=== PATIENT | female | born 1950 ===

== ENCOUNTER 2023-06-18 14:50 | Outpatient (CLI) | payer SELFPAY ==
[~2023-06-18] VITALS: Ht 147 cm; Wt 53.9 kg
[2023-06-18 16:01] LABS: CLARITY,URINE CLEAR; COLOR,URINE YELLOW; PH,URINE >=9.0 (5-9)
[2023-06-18 16:02] LABS: BACTERIA,URINE NEGATIVE /HPF; BILIRUBIN,URINE NEGATIVE (NEGATIVE); GLUCOSE, URINE (UA) NEGATIVE (NEGATIVE); KETONES,URINE NEGATIVE (NEGATIVE); LEUKOCYTE ESTERASE ,URINE 1+ (NEGATIVE); NITRITE,URINE NEGATIVE (NEGATIVE); PROTEIN,URINE NEGATIVE (NEGATIVE); WBC,URINE 0-2 /HPF
[2023-06-18 16:05] LABS: BASOPHILS % (AUTO) 0 % (0-10); EOSINOPHILS % (AUTO) 0 % (0-10); HEMATOCRIT 39 % (35-52); HEMOGLOBIN 12.3 g/dL (11.5-16.0); LYMPHOCYTES # (AUTO) 1.5 10^3/uL (1.0-4.0); LYMPHOCYTES % (AUTO) 13 % (12-44); MEAN CORPUSCULAR HEMOGLOBIN 28 pg (25-34); MEAN CORPUSCULAR HGB CONC 32 g/dL (32-36); MEAN CORPUSCULAR VOLUME 88 fL (80-99); MONOCYTES # (AUTO) 0.5 10^3/uL (0.0-1.0); MONOCYTES % (AUTO) 4 % (0-12); NEUTROPHILS # (AUTO) 9.7 10^3/uL (1.8-7.8); NEUTROPHILS % (AUTO) 82 % (42-75); PLATELET COUNT 405 10^3/uL (130-400); WHITE BLOOD COUNT 11.8 10^3/uL (4.3-11.0)
[2023-06-18 16:23] LABS: CALCIUM 8.8 MG/DL (8.5-10.1)
[2023-06-18 16:28] LABS: CREATININE SERUM 0.71 MG/DL (0.60-1.30)
== END 2023-06-18 18:03 ==
LOC: PREOP 14:50
PROVIDERS: ATTEND Orthopaedic Surgery
DX: Z01.818 Encounter for other preprocedural examination (principal); M17.12 Unilateral primary osteoarthritis, left knee
CPT/HCPCS: 36415; 80048; 81000; 85025; 87081; 93005

== ENCOUNTER → 2023-06-18 | Outpatient (CLI) | payer SELFPAY ==
[~2023-06-18] MED LIST: ASPI-1238 PO; OXC5T PO
--- NOTE | 2023-06-18 14:37 | Diagnostic Imaging Report ---
EXAMINATION: Chest 2 view HISTORY: PRE-SURGERY TESTING COMPARISON: None available. FINDINGS: There is bibasilar atelectasis. No edema or pneumonia. No pleural effusion or pneumothorax. Heart size is normal. IMPRESSION: 1. Bibasilar atelectasis. Dictated by: Dictated on workstation # [id number]
--- NOTE | 2023-06-18 16:58 | Diagnostic Imaging Report ---
KNEE, BILATERAL, W/SUNRISE 4V. INDICATION: Bilateral knee pain COMPARISON: None available. TECHNIQUE: 4 views of each knee for total of 8 views FINDINGS: Severe osteoarthritis of bilateral knees with complete joint space in the medial compartment on each side. No trochlear dysplasia or patellar subluxation. No fracture or worrisome focal osseous lesions. Small knee joint effusion on both sides. IMPRESSION: Severe osteoarthritis of both knees. Dictated by: Dictated on workstation # [id number]
== END ==
LOC: ORTHO 13:01
PROVIDERS: ATTEND Orthopaedic Surgery
DX: M17.0 Bilateral primary osteoarthritis of knee (principal)
CPT/HCPCS: 71046; 73564; G0463; 99203

== ENCOUNTER 2023-07-01 07:23 | Day surgery (SDC) | payer SELFPAY ==
[2023-07-01] VITALS (11 sets, daily range): BP systolic 111–181; BP diastolic 63–95
[~2023-07-01] VITALS: Ht 147 cm; Wt 53.9 kg
[2023-07-01] MEDS ORDERED: ceFAZolin INJECTION 2,000 MG in NS (IVPB) 50 ML 50 ML IV ONE (07:30)
[2023-07-01] MEDS: LACTATED RINGERS 1,000 ML 1,000 ML IV PRN ×2 (08:17→11:46)
[2023-07-01] MEDS ORDERED: ONDANSETRON INJECTION 4 MG/2 ML (SDV) IVP PRN (08:30)
[2023-07-01] MEDS ORDERED: BUPIVACAINE 0.5% 30 ML VIAL ONE (10:06)
--- NOTE | 2023-07-01 11:05 | Progress Note-Pre Operative ---
Pre-Operative Progress Note Date of Available H&P: Jun 18, 2023 Date H&P Reviewed: Jul 01, 2023 Time H&P Reviewed: 10:45 History & Physical: H&P Reviewed, Patient Examed, No changes noted Pre-Operative Diagnosis: Left Knee Primary Osteoarthritis LORETTA AQUINO MD Jul 01, 2023 11:05
[2023-07-01] MEDS ORDERED: TRANEXAMIC ACID 100 MG/ML 10 ML INJECTION ONE (11:30)
[2023-07-01] MEDS ORDERED: PHENYLEPHRINE 100 MCG/ML 10 ML (ANESTHESIA) SYR ONE (11:32)
[2023-07-01] MEDS ORDERED: proPOfol INJECTION 200 MG/20 ML VIAL IV ONE (12:53)
--- NOTE | 2023-07-01 13:34 | Operative Report - Ortho ---
Operative Report Surgeon (s)/Service Electrician (s) Surgeon LORETTA AQUINO MD Service Electrician n/a Pre-Operative Diagnosis Left Knee Primary Osteoarthritis Post-Operative Diagnosis same Operative Report Date of Procedure: Jul 01, 2023 Name of Procedure Performed: Left Total Knee Arthroplasty Description & Findings After obtaining informed consent and marking the patient in the preoperative holding area, the patient did receive IV antibiotics. Patient was taken to the operating room and anesthesia was induced. Surgical timeout was taken. The left lower extremity was prepped and draped in the usual sterile fashion. Incision was made and carried down to fascia. Arthrotomy was performed on the medial side of the patella. Patella was retracted laterally and knee was flexed. Found to have circumferential osteophtye around the distal femur as well as exposed bone in the medial compartment. Hole was made in the distal femur for the intramedullary distal femoral cutting guide. Resection was made then the femur was sized as a 3. 4-in-1 block for a size [address]. Anterior cut was made and there was no notch. Posterior cut was made followed by the chamfers. Box cut was performed. Lug holes were drilled. Attention was turned to the tibial side, extramedullary tibial guide was put into place and aligned with the tibial crest. It was set to take 2 mm off of the affected medial side. Drop anna was used to confirm alignment. Resection was made and was parallel to the joint line. Tibial bone block was removed. Lamina wool presser was put into place and the menisci and posterior osteophytes were removed. The knee was trialed with a size 3 femur and a size 2 tibia with an 11 mm poly trial. It was found to come out to full extension and flexed beyond 120 degrees. It was stable to varus and valgus stress throughout its range of motion. This was accepted. Knee was brought out into extension and the patella was measured at less than 20 mm of thickness; osteophytes were removed from the perimeter of the patella. Tibial tray was pinned and punched. The cut bone surfaces were lavaged with pulsatile normal saline. Cement was mixed. Implants were opened and assembled on the back table. Cement was applied to the cut bone surfaces as well as the implant surfaces. A size 2 tibial component was impacted into place and excess cement was removed using a freer. A size 3 femoral component was impacted into place and excess cement was removed using a freer. Tibial tray was lavaged with saline. An 11 mm thick polyethylene component was locked into placed and the locking mechanism was checked. Knee was brought into extension. The cement was allowed to set. Irrisept soak was performed. The knee was once again trialed; found to come to full extension, flexed beyond 120 degrees, and was stable to varus and valgus stress. Patella did have some issues with tracking; a lateral release and some suture reefing was performed and the patella tracking improved. Tourniquet was dropped and electrocautery was used for hemostasis. Fascial layer was closed with #2 Stratafix. The subcutaneous layer was closed with 2-0 and 3-0 Vicryl. The skin was closed with adi. Wound was dressed with steri-strips, xeroform, 4x4s, ABD, webril, and STEVE wrap. Patient tolerated the procedure well and was stable to the recovery room. Anesthesia Type Spinal Estimated Blood Loss 100 mL Specimen(s) collected/removed None LROETTA AQUINO MD Jul 01, 2023 13:34
[2023-07-01] MEDS ORDERED: BISACODYL 5 MG TABLET PO PRN (13:45)
[2023-07-01] MEDS ORDERED: MILK OF MAGNESIA 400 MG/5 ML 30 ML UDC PO PRN (13:45)
[2023-07-01] MEDS ORDERED: NS IV 1000 ML 1,000 ML IV SCH (13:45)
[2023-07-01] MEDS ORDERED: ACETAMINOPHEN 500 MG TABLET PO PRN (13:45)
--- NOTE | 2023-07-01 14:28 | Diagnostic Imaging Report ---
CLINICAL HISTORY: Postop left knee arthroplasty. COMPARISON: 06/18/2023. TECHNIQUE: 2 views of the left knee. FINDINGS: Postsurgical changes of left total knee arthroplasty are visualized. The femoral and tibial components are well-seated. No periprosthetic fracture. Alignment is anatomic. Skin adi are seen overlying the left knee. IMPRESSION: 1. Expected post surgical changes of left total knee arthroplasty. Dictated by: Dictated on workstation # [id number]
[2023-07-01] MEDS ORDERED: FLU HIGH DOSE (65+ YOA) 240 MCG/0.7 ML 2023-24 (FLUZONE) IM ONE (15:00)
--- NOTE | 2023-07-01 15:37 | Consultation ---
RADHA PINA 07/01/23 1537: HPI History of Present Illness: HPI/Chief Complaint Left total knee replacement was performed this morning by Dr. Whipple. An electronic machinist tool and die was used. Pt has no current knee pain. She has no problems with the incisions. Pt complains of stomach pain that was present before the surgery and is bothering her right now. She describes the pain as a constant dull in the "pit" of her stomach. She has a history of an ulcer. She uses Advil at home. Pt also complains of feeling nauseous and the feeling she could vomit that occurred after the surgery. She denies any KING, CP, or SOB. Her last BM was before the surgery. Source: machinist tool and die (electronic) Exam Limitations: language barrier (thai speaking) Date Seen 07/01/23 at 1515H. Attending Physician PCP Admitting Physician: Ronald Whipple MD Attending Physician: Ronald Whipple MD Referring Physician Date of Admission Home Medications & Allergies Home Medications Reviewed patient Home Medication Reconciliation performed by pharmacy medication reconciliations conveyor technician and/or nursing. Patients Allergies have been reviewed. Allergies Allergies Coded Allergies No Known Drug Allergies (Czcxhaljmb97/14/23) Past Shebogq-Bgrtwz-Ztkudk Hx Patient Social History Tobacco Use?: No Use of E-Cig and/or Vaping dev: No Substance use?: No Alcohol Use?: No Immunizations Up To Date Tetanus Booster (TDap): Unknown Hepatitis A: No Hepatitis B: No Seasonal Allergies Seasonal Allergies: No Current Status Advance Directives: No Communicates: Verbally Primary Language: [place] Preferred Spoken Language: [place] Is interpretation needed?: Yes Sensory deficits: Other Past Medical History Surgeries: Section, Gallbladder ("cysts removed". GB is still in tact.) Currently Using CPAP: No Currently Using BIPAP: No High Cholesterol Gall Bladder Disease Arthritis Loss of Vision: Denies Hearing Impairment: Denies Recent Skin Changes Blood Disorders: No Family Medical History Patient reports no known family medical history. No Pertinent Family Hx (pt was asked directly about her mother and father. She verbalized them not having any chronic conditions.) Review of Systems Constitutional: No dizziness, No fever, No malaise, No weakness EENTM: No hearing loss, No ear pain, No eye pain Respiratory: No cough, No short of breath Cardiovascular: No chest pain, No palpitations Gastrointestinal: abdominal pain, nausea Physical Exam Physical Exam Vital Signs Vital Signs - First Documented 07/01/23 07:35 Temp 36.5 Pulse 84 Resp 18 B/P (MAP) 181/93 (122) Pulse Ox 98 O2 Delivery Room Air Capillary Refill : Less Than 3 Seconds Height, Weight, BMI Height: '" Weight: lbs. oz. 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 Assessment/Plan Assessment and Plan Assess & Plan/Chief Complaint Assessmnet: Left Total Knee Plan: Left Total Knee -monitor pt's status and pain UYEN HERNANDEZ DO 07/02/23 0456: HPI History of Present Illness: HPI/Chief Complaint Chief complaint: Left total knee replacement HPI: This is a 72-year-old female who presents following left knee replacement uncomplicated by Dr. Whipple. I am able to communicate and medical [place]ander. Patient currently having a lot of pain but no nausea. Source: patient, RN/MD, old records Exam Limitations: no limitations Past Vejcgzo-Wguotu-Rqnsis Hx Patient Social History Marrital Status: Employed/Student: retired Tobacco Use?: No Smoking Status: Never a Smoker Past Medical History Surgeries: Orthopedic Family Medical History Patient reports no known family medical history. Review of Systems Constitutional: see HPI Musculoskeletal: joint pain Physical Exam Physical Exam General Appearance: Anxious, Mild Distress Respiratory: Lungs Clear, Normal Breath Sounds Cardiovascular: Regular Rate, Rhythm Neurologic/Psychiatric: Alert, Oriented x3 Assessment/Plan Assessment and Plan Assess & Plan/Chief Complaint Assessment: Left total knee replacement Elevated blood pressure without diagnosis of hypertension Plan: Check labs in a.m. Pain control Monitor closely Supervisory-Addendum Brief Verification & Attestation Participated in pt care: history, MDM, physical Personally performed: exam, history, MDM, supervision of care Care discussed with: Medical Student Procedures: n/a Results interpretation: Verified all documentation Verification and Attestation of Medical Student E/M Service A medical student performed and documented this service in my presence. I reviewed and verified all information documented by the medical student and made modifications to such information, when appropriate. I personally performed the physical exam and medical decision making. Uyen Hernandez, Jul 02, 2023,04:54 RADHA PINA Jul 01, 2023 15:37 UYEN HERNANDEZ DO Jul 02, 2023 04:56
[2023-07-01] MEDS: morphine INJ 4 MG/ML 1 ML (VIAL/SYRINGE) IVP PRN ×3 (15:48→20:25)
[2023-07-01] MEDS: oxyCODONE IMMEDIATE RELEASE 5 MG TABLET PO PRN (16:59)
[2023-07-01] MEDS: ASPIRIN enteric coated 81MG TABLET PO SCH (16:59)
[2023-07-01] MEDS: ONDANSETRON INJECTION 4 MG/2 ML (SDV) IV PRN (19:36)
[2023-07-01] MEDS: CELECOXIB 100 MG CAPSULE PO SCH (19:37)
[2023-07-01] MEDS: DOCUSATE SODIUM 100 MG CAPSULE PO SCH (19:38)
[2023-07-01] MEDS: ceFAZolin INJECTION 2,000 MG in NS (IVPB) 50 ML 50 ML IV SCH (20:25)
[2023-07-01] MEDS ORDERED: hydrALAZINE 25 MG TABLET PO PRN (20:30)
[2023-07-02] VITALS (7 sets, daily range): BP systolic 120–155; BP diastolic 70–83
[2023-07-02] MEDS: oxyCODONE IMMEDIATE RELEASE 5 MG TABLET PO PRN ×2 (01:56→16:48)
[2023-07-02] MEDS: ONDANSETRON INJECTION 4 MG/2 ML (SDV) IV PRN ×2 (01:56→13:33)
[2023-07-02] MEDS: ceFAZolin INJECTION 2,000 MG in NS (IVPB) 50 ML 50 ML IV SCH (05:39)
[2023-07-02] MEDS: THERAPEUTIC MULTIVITAMIN W/MINERALS TABLET PO SCH (05:39)
[2023-07-02 05:45] LABS: BASOPHILS # (AUTO) 0.1 10^3/uL (0.0-0.1); BASOPHILS % (AUTO) 1 % (0-10); EOSINOPHILS # (AUTO) 0.2 10^3/uL (0.0-0.3); EOSINOPHILS % (AUTO) 2 % (0-10); HEMATOCRIT 35 % (35-52); HEMOGLOBIN 10.9 g/dL (11.5-16.0); LYMPHOCYTES # (AUTO) 1.6 10^3/uL (1.0-4.0); LYMPHOCYTES % (AUTO) 14 % (12-44); MEAN CORPUSCULAR HEMOGLOBIN 27 pg (25-34); MEAN CORPUSCULAR HGB CONC 31 g/dL (32-36); MEAN CORPUSCULAR VOLUME 87 fL (80-99); MEAN PLATELET VOLUME 9.2 fL (9.0-12.2); MONOCYTES # (AUTO) 1.2 10^3/uL (0.0-1.0); MONOCYTES % (AUTO) 10 % (0-12); NEUTROPHILS % (AUTO) 74 % (42-75); PLATELET COUNT 259 10^3/uL (130-400); WHITE BLOOD COUNT 12.2 10^3/uL (4.3-11.0)
[2023-07-02 06:01] LABS: ALBUMIN 3.5 GM/DL (3.2-4.5); BILIRUBIN,TOTAL 0.6 MG/DL (0.1-1.0); CALCIUM 8.5 MG/DL (8.5-10.1); CREATININE SERUM 0.72 MG/DL (0.60-1.30); TOTAL PROTEIN 5.9 GM/DL (6.4-8.2)
[2023-07-02] MEDS: ASPIRIN enteric coated 81MG TABLET PO SCH ×2 (08:08→18:44)
[2023-07-02] MEDS: CELECOXIB 100 MG CAPSULE PO SCH ×2 (08:09→21:32)
[2023-07-02] MEDS: DOCUSATE SODIUM 100 MG CAPSULE PO SCH ×2 (08:09→21:32)
[2023-07-02] MEDS: morphine INJ 4 MG/ML 1 ML (VIAL/SYRINGE) IVP PRN (08:09)
--- NOTE | 2023-07-02 08:36 | Progress Note ---
Subjective Date Seen by a Provider: Jul 02, 2023 Time Seen by a Provider: 11:30 Subjective/Events-last exam Patient doing about the same A lot of pain Some nausea Walked a little bit with therapy Review of Systems Gastrointestinal: Nausea Musculoskeletal: leg pain Objective Exam Last Set of Vital Signs Vital Signs Date Time Temp Pulse Resp B/P (MAP) Pulse Ox O2 Delivery O2 Flow Rate FiO2 07/02/23 07:35 37.8 91 16 146/83 (104) 93 Nasal Cannula 2.00 Capillary Refill : Less Than 3 Seconds I&O Intake and Output 07/01/23 23:59 Intake Total 1440 ml Output Total 1650 ml Balance -210 ml Intake Oral 340 ml IV Total 1100 ml Output Urine Total 1650 ml General: Alert, Oriented X3, Cooperative, No Acute Distress Lungs: Clear to Auscultation, Normal Air Movement Heart: Regular Rate, Normal S1, Normal S2, No Murmurs Psych/Mental Status: Mental Status NL, Mood NL Results Lab Laboratory Tests 07/02/23 05:29: White Blood Count 12.2H, Red Blood Count 3.98, Hemoglobin 10.9L, Hematocrit 35, Mean Corpuscular Volume 87, Mean Corpuscular Hemoglobin 27, Mean Corpuscular Hemoglobin Concent 31L, Red Cell Distribution Width 13.4, Platelet Count 259, Mean Platelet Volume 9.2, Immature Granulocyte % (Auto) 0, Neutrophils (%) (Auto) 74, Lymphocytes (%) (Auto) 14, Monocytes (%) (Auto) 10, Eosinophils (%) (Auto) 2, Basophils (%) (Auto) 1, Neutrophils # (Auto) 9.0H, Lymphocytes # (Auto) 1.6, Monocytes # (Auto) 1.2H, Eosinophils # (Auto) 0.2, Basophils # (Auto) 0.1, Immature Granulocyte # (Auto) 0.1, Sodium Level 139, Potassium Level 3.0L, Chloride Level 106, Carbon Dioxide Level 23, Anion Gap 10, Blood Urea Nitrogen 8, Creatinine 0.72, Estimat Glomerular Filtration Rate 88, BUN/Crea tinine Ratio 11, Glucose Level 168H, Calcium Level 8.5, Corrected Calcium 8.9, Total Bilirubin 0.6, Aspartate Amino Transf (AST/SGOT) 18, Alanine Aminotransferase (ALT/SGPT) 24, Alkaline Phosphatase 83, Total Protein 5.9L, Albumin 3.5 Assessment/Plan Assessment/Plan Assess & Plan/Chief Complaint Assessment: Left total knee replacement Elevated blood pressure without diagnosis of hypertension Hypokalemia Nausea Plan: Continue therapy Replace potassium Monitor closely CARLA HERNANDEZ DO Jul 02, 2023 08:36
[2023-07-02] MEDS ORDERED: POTASSIUM CHLORIDE 20 MEQ TABLET PO ONE (08:45)
--- NOTE | 2023-07-02 09:32 | Progress Note - Ortho ---
Progress Note Subjective Date of Exam 07/02/23 Chief Complaint POD #1 L TKA HPI/Events since last exam some difficulty with pain, difficulty with nausea Review of Systems - Allergies: Coded Allergies: No Known Drug Allergies (Unverified , 06/18/23) Home Meds No Active Prescriptions or Reported Meds Objective Exam L Knee: Dressing C/D/I, +DF of ankle, no s/s of DVT Vital Signs Vital Signs Date Time Temp Pulse Resp B/P (MAP) Pulse Ox O2 Delivery O2 Flow Rate FiO2 07/02/23 08:51 92 Room Air 07/02/23 07:35 37.8 91 16 146/83 (104) 93 Nasal Cannula 2.00 07/02/23 04:01 37.5 94 16 155/75 (101) 92 Room Air 07/01/23 23:11 37.0 83 18 150/74 (99) 92 Room Air 07/01/23 19:45 92 Room Air 07/01/23 19:08 36.9 77 16 160/75 (103) 92 Room Air 07/01/23 15:38 36.5 66 16 136/84 (101) 95 Room Air 07/01/23 14:36 36.5 65 16 162/63 (96) 93 Room Air 07/01/23 14:25 Room Air 07/01/23 14:20 36.2 20 166/95 (118) 97 Room Air 07/01/23 14:15 Room Air 07/01/23 14:10 20 162/95 (117) 98 Room Air 07/01/23 14:00 Room Air 07/01/23 14:00 20 161/81 (107) 96 Room Air 07/01/23 13:50 20 144/80 (101) 98 Room Air 07/01/23 13:45 Room Air 07/01/23 13:40 20 118/68 (85) 98 Room Air 07/01/23 13:31 Room Air 07/01/23 13:31 36.2 20 111/71 (84) 97 Room Air I & O 07/02/23 06:59 Intake Total 2840 ml Output Total 2800 ml Balance 40 ml Lab Results Laboratory Tests 07/02/23 05:29: White Blood Count 12.2H, Red Blood Count 3.98, Hemoglobin 10.9L, Hematocrit 35, Mean Corpuscular Volume 87, Mean Corpuscular Hemoglobin 27, Mean Corpuscular Hemoglobin Concent 31L, Red Cell Distribution Width 13.4, Platelet Count 259, Mean Platelet Volume 9.2, Immature Granulocyte % (Auto) 0, Neutrophils (%) (Auto) 74, Lymphocytes (%) (Auto) 14, Monocytes (%) (Auto) 10, Eosinophils (%) (Auto) 2, Basophils (%) (Auto) 1, Neutrophils # (Auto) 9.0H, Lymphocytes # (Auto) 1.6, Monocytes # (Auto) 1.2H, Eosinophils # (Auto) 0.2, Basophils # (Auto) 0.1, Immature Granulocyte # (Auto) 0.1, Sodium Level 139, Potassium Level 3.0L, Chloride Level 106, Carbon Dioxide Level 23, Anion Gap 10, Blood Urea Nitrogen 8, Creatinine 0.72, Estimat Glomerular Filtration Rate 88, BUN/Creatinine Ratio 11, Glucose Level 168H, Calcium Level 8.5, Corrected Calcium 8.9, Total Bilirubin 0.6, Aspartate Amino Transf (AST/SGOT) 18, Alanine Aminotransferase (ALT/SGPT) 24, Alkaline Phosphatase 83, Total Protein 5.9L, Albumin 3.5 Imaging 2 postop views of the left knee dated 07/02/23 were reviewed from PACS and demonstrated total knee arthroplasty with components in good position, no complicating features Assessment and Plan Assessment Left Knee OA s/p TKA Problem List Left Knee OA s/p TKA Plan PT/OT DVT Prophylaxis Plan for home with home health versus outpatient therapy tomorrow Final Diagonsis Left Knee OA s/p TKA Level of the visit: Level 3 (global) LORETTA AQUINO MD Jul 02, 2023 09:32
--- NOTE | 2023-07-02 09:47 | Physical Therapy Evaluation ---
PT Evaluation-General Medical Diagnosis Admission Date July 01, 2023 Medical Diagnosis: left knee OA Onset Date: Jul 01, 2023 Therapy Diagnosis Therapy Diagnosis: impaired mobility/weakness Precautions Precautions/Isolations: Standard Precautions Weight Bear Status Right Lower Extremity: Right Full Weight Bearing Left Lower Extremity: Left Weight Bearing/Tolerated Referral Physician: Sarabjit Reason for Referral: Evaluation/Treatment Medical History Pertinent Medical History: OA Current History s/p elective left TKR Reviewed History: Yes Social History Home: Single Level Current Living Status: Other Family Prior Prior Level of Function SCALE: Activities may be completed with or without assistive devices. 2-Nqtmutmppt-laefhcv completes the activity by him/herself with no assistance from a helper. 5-Set-up or Clean-up Assistance-helper sets up or cleans up; patient completes activity. Rayle assists only prior to or following the activity. 4-Supervision or Touching Assistance-helper provides verbal cues and/or touching/steadying and/or contact guard assistance as patient completes activity. Assistance may be provided throughout the activity or intermittently. 3-Partial/Moderate Assistance-helper does LESS THAN HALF the effort. Rayle lifts, holds or supports trunk or limbs, but provides less than half the effort. 2-Substantial/Maximal Assistance-helper does MORE THAN HALF the effort. Rayle lifts or holds trunk or limbs and provides more than half the effort. 2-Oiecokvny-toefri does ALL the effort. Patient does none of the effort to complete the activity. Or, the assistance of 2 or more helpers is required for the patient to complete the activity. If activity was not attempted, code reason: 7-Patient Refused. 9-Not Applicable-not attempted and the patient did not perform the activity before the current illness, exacerbation or injury. 10-Not Attempted due to Environmental Limitations-(lack of equipment, weather restraints, etc.). 88-Not Attempted due to Medical Conditions or Safety Concerns. Bed Mobility: 6 Transfers (B,C,W/C): 6 Gait: 6 Indoor Mobility (Ambulation): Independent PT Evaluation-Current Subjective Family present. Patient agrees to therapy. Pain Numeric Pain Scale: 10-Worst Possible Pain Location: Left Location Body Site: Knee Pain Description: Acute Objective Patient Orientation: Normal For Age Attachments: IV ROM/Strength ROM Lower Extremities left knee flexion 50 degrees/5 degrees extension/right LE WFL Strength Lower Extremities left LE 3-/5 grossly;right LE 4/5 grossly Integumentary/Posture Bladder Incontinence: No Posture WFL Neuromuscular (Tone, Coordination, Reflexes) grossly intact Sensory Vision: Functional Hearing: Functional Transfers Lying to Sitting/Side of Bed(Q: 4 Sit to Stand (QC): 4 Chair/Yve-yj-Rbosr Xfer(QC): 4 Toilet Transfer (QC): 3 Gait Mode of Locomotion: Walk Anticipated Mode of Locomotion: Walk Walk 10 feet (QC): 4 Walk 50 ft with 2 Turns(QC): 4 Walk 150 ft (QC): 88 Distance: 70' Gait Assistive Device: FWW Comments/Gait Description slow, antalgic, step to Balance Sitting Static: Normal Sitting Dynamic: Normal Standing Static: Fair Standing Dynamic: Fair Assessment/Needs Patient will benefit from skilled PT to address functional strength and mobility to improve current LOF to safely return to home with family at maximum LOF. 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 Time Frame: Jul 13, 2023 Roll Left & Right (QC): 6 Sit to Lying (QC): 6 Lying-Sitting on Side/Bed(QC): 6 Sit to Stand (QC): 6 Chair/Byz-rb-Yhhcj Xfer(QC): 6 Toilet Transfer (QC): 6 Walk 10 feet (QC): 5 Walk 50ft with 2 Turns (QC): 5 Walk 150 ft (QC): 5 PT Plan Problem List Problem List: Activity Tolerance, Functional Strength, Safety, Balance, Gait, Transfer, Bed Mobility, ROM Treatment/Plan Treatment Plan: Continue Plan of Care Treatment Plan: Bed Mobility, Education, Functional Activity Onur, Functional Strength, Gait, Safety, Therapeutic Exercise, Transfers Treatment Duration: Jul 13, 2023 Frequency: 11 times per week Estimated Hrs Per Day: .5 hour per day Patient and/or Family Agrees t: Yes Time Time In: 805 Time Out: 830 DATE: Jul 02, 2023 Total Billed Treatment Time: 25 Total Billed Treatment 1 visit EVModC 10 min GT 15 min RADHA BENJAMIN PT Jul 02, 2023 09:47
--- NOTE | 2023-07-02 09:54 | Occupational Therapy Eval ---
OT Evaluation-General/PLF Medical Diagnosis Admission Date Medical Diagnosis: left knee OA Onset Date: Jul 01, 2023 Therapy Diagnosis Therapy Diagnosis: weakness, pain s/p LTKA Precautions Precautions/Isolations: Standard Precautions Weight Bear Status Weight Bearing Restriction: Weight Bearing/Tolerated Location Restriction: L LE Referral Physician: Sarabjit Referral Reason: Self Care, Evaluation/Treatment Medical History Pertinent Medical History: OA Current History Chilean speaking only, family member to translate Reviewed History: Yes Social History Home: Single Level Current Living Status: Other Family ADL-Prior Level of Function SCALE: Activities may be completed with or without assistive devices. 8-Vbqwomlvuq-ttornoc completes the activity by him/herself with no assistance from a helper. 5-Set-up or Clean-up Assistance-helper sets up or cleans up; patient completes activity. [place] assists only prior to or following the activity. 4-Supervision or Touching Assistance-helper provides verbal cues and/or touching/steadying and/or contact guard assistance as patient completes ac tivity. Assistance may be provided throughout the activity or intermittently. 3-Partial/Moderate Assistance-helper does LESS THAN HALF the effort. [place] lifts, holds or supports trunk or limbs, but provides less than half the effort. 2-Substantial/Maximal Assistance-helper does MORE THAN HALF the effort. [place] lifts or holds trunk or limbs and provides more than half the effort. 7-Wqeuzijza-wxvway does ALL the effort. Patient does none of the effort to complete the activity. Or, the assistance of 2 or more helpers is required for the patient to complete the activity. If activity was not attempted, code reason: 7-Patient Refused. 9-Not Applicable-not attempted and the patient did not perform the activity before the current illness, exacerbation or injury. 10-Not Attempted due to Environmental Limitations-(lack of equipment, weather restraints, etc.). 88-Not Attempted due to Medical Conditions or Safety Concerns. Self Care: Independent Functional Cognition: Independent Drive Self: No OT Current Status Subjective Agreeable to therapy Pain Numeric Pain Scale: 10-Worst Possible Pain (morphine given byb RN) Mental Status/Objective Patient Orientation: Person, Place, Time, Situation Current Hand Dominance: Right Upper Extremity ROM BUE ROM WFLS Upper Extremity Coordination intact Upper Extremity Sensation intact Upper Extremity Strength -4/5 grossly ADL-Treatment Eating (QC): 5 Shower/Bathe Self (QC): 7 Lower Body Dressing (QC): 3 On/Off Footwear (QC): 3 Toileting Hygiene (QC): 4 demonstration required d/t language barmier Education OT Patient Education: Correct positioning, Instructions to caregiver, Modified ADL techniques, Progress toward Goal/Update tx plan, Purpose of tx/functional activities, Reviewed precautions, Rehab process, Safety issues, Transfer techniques, Use of adapted equipment Teaching Recipient: Patient, Family Teaching Methods: Demonstration, Discussion Response to Teaching: Reinforcement Needed OT Bacteriologist Fishery Goals Detention Goals Eating (QC): 6 Oral Hygiene (QC): 6 Toileting Hygiene (QC): 6 Shower/Bathe Self (QC): 4 Upper Body Dressing (QC): 6 Lower Body Dressing (QC): 6 On/Off Footwear (QC): 6 1=Demonstrate adherence to instructed precautions during ADL tasks. 2=Patient will verbalize/demonstrate understanding of assistive devices/modifications for ADL. 3=Patient will improve strength/tolerance for activity to enable patient to perform ADL's. OT Education/Plan Problem List/Assessment Assessment: Decreased Activ Tolerance, Decreased UE Strength, Impaired Self- Care Skills Discharge Recommendations Plan/Recommendations: Continue POC Treatment Plan/Plan of Care Treatment,Training & Education: Yes Patient would benefit from OT for education, treatment and training to promote independence in ADL's, mobility, safety and/or upper extremity function for ADL's. Plan of Care: ADL Retraining, Functional Mobility, Group Exercise/Act as Ind, UE Funct Exercise/Act Treatment Duration: Jul 05, 2023 Frequency: 3 times per week (3-5 times per week) Estimated Hrs Per Day: .25 hour per day Agreement: Yes Rehab Potential: Fair up in recliner, al needs met, small ,meal provided, family in rom Time Start Time: 08:05 Stop Time: 08:33 DATE: Jul 02, 2023 Total Time Billed (hr/min): 28 Billed Treatment Time EVM ADL 28 min RENETTA VANEGAS OT Jul 02, 2023 09:54
--- NOTE | 2023-07-02 13:59 | Physical Therapy Daily Note ---
PT Daily Note-Current Pain Section J - Health Conditions 1. Rarely or not at all 2. Occasionally 3. Frequently 4. Almost constantly 8. Unable to answer Pain Effect on Sleep: 3 Pain Interference with Therapy: 3 Pain Interference w/Day-to-Day: 3 Transfers SCALE: Activities may be completed with or without assistive devices. 4-Ceduepakyi-bdpqryt completes the activity by him/herself with no assistance from a helper. 5-Set-up or Clean-up Assistance-helper sets up or cleans up; patient completes activity. [place] assists only prior to or following the activity. 4-Supervision or Touching Assistance-helper provides verbal cues and/or touching/steadying and/or contact guard assistance as patient completes activity. Assistance may be provided throughout the activity or intermittently. 3-Partial/Moderate Assistance-helper does LESS THAN HALF the effort. [place] lifts, holds or supports trunk or limbs, but provides less than half the effort. 2-Substantial/Maximal Assistance-helper does MORE THAN HALF the effort. [place] lifts or holds trunk or limbs and provides more than half the effort. 4-Lthfrdpib-mhtftl does ALL the effort. Patient does none of the effort to complete the activity. Or, the assistance of 2 or more helpers is required for the patient to complete the activity. If activity was not attempted, code reason: 7-Patient Refused. 9-Not Applicable-not attempted and the patient did not perform the activity before the current illness, exacerbation or injury. 10-Not Attempted due to Environmental Limitations-(lack of equipment, weather restraints, etc.). 88-Not Attempted due to Medical Conditions or Safety Concerns. Lying to Sitting/Side of Bed(Q: 4 Sit to Stand (QC): 4 Chair/Ebo-tu-Mszwr Xfer(QC): 4 Weight Bearing Right Lower Extremity: Right Full Weight Bearing Left Lower Extremity: Left Weight Bearing/Tolerated Gait Training Distance: 100' Walk 10 feet (QC): 4 Walk 50 ft with 2 Turns(QC): 4 Gait Assistive Device: FWW slow, antalgic, step to Exercises Supine Ex: Ankle pumps, Quad Set, Heel Slides, Straight leg raise Supine Reps: 10 Seated Therapy Exercises: Long arc quads Seated Reps: 10 Assessment Family present. Patient progressing slowly with treatment plan. AROM left knee limited due to pain. Patient up in recliner with needs met. Continue to increase activity as tolerated by patient. PT Fast Food Attendant Goals Fast Food Attendant Goals PT Longterm Goals Time Frame: Jul 13, 2023 Roll Left & Right (QC): 6 Sit to Lying (QC): 6 Lying-Sitting on Side/Bed(QC): 6 Sit to Stand (QC): 6 Chair/Qtw-jt-Vvnan Xfer(QC): 6 Toilet Transfer (QC): 6 Walk 10 feet (QC): 5 Walk 50ft with 2 Turns (QC): 5 Walk 150 ft (QC): 5 PT Plan Treatment/Plan Treatment Plan: Continue Plan of Care Treatment Plan: Bed Mobility, Education, Functional Activity Onur, Functional Strength, Gait, Safety, Therapeutic Exercise, Transfers Treatment Duration: Jul 13, 2023 Frequency: 11 times per week Estimated Hrs Per Day: .5 hour per day Patient and/or Family Agrees t: Yes Time Time In: 1305 Time Out: 1328 DATE: Jul 02, 2023 Total Billed Treatment Time: 23 Total Billed Treatment 1 visit EX 13 min GT 10 min RADHA BENJAMIN PT Jul 02, 2023 13:59
[2023-07-03 03:10] VITALS: BP 123/75
[2023-07-03] MEDS: ONDANSETRON INJECTION 4 MG/2 ML (SDV) IV PRN ×2 (04:27→10:23)
[2023-07-03] MEDS: morphine INJ 4 MG/ML 1 ML (VIAL/SYRINGE) IVP PRN (04:31)
[2023-07-03] MEDS: THERAPEUTIC MULTIVITAMIN W/MINERALS TABLET PO SCH (04:31)
[2023-07-03 05:26] LABS: BASOPHILS # (AUTO) 0.1 10^3/uL (0.0-0.1); BASOPHILS % (AUTO) 0 % (0-10); EOSINOPHILS # (AUTO) 0.1 10^3/uL (0.0-0.3); EOSINOPHILS % (AUTO) 1 % (0-10); HEMATOCRIT 37 % (35-52); HEMOGLOBIN 11.8 g/dL (11.5-16.0); LYMPHOCYTES # (AUTO) 0.8 10^3/uL (1.0-4.0); LYMPHOCYTES % (AUTO) 7 % (12-44); MEAN CORPUSCULAR HEMOGLOBIN 28 pg (25-34); MEAN CORPUSCULAR HGB CONC 32 g/dL (32-36); MEAN CORPUSCULAR VOLUME 87 fL (80-99); MEAN PLATELET VOLUME 9.4 fL (9.0-12.2); MONOCYTES # (AUTO) 0.9 10^3/uL (0.0-1.0); MONOCYTES % (AUTO) 8 % (0-12); NEUTROPHILS # (AUTO) 9.9 10^3/uL (1.8-7.8); NEUTROPHILS % (AUTO) 83 % (42-75); PLATELET COUNT 272 10^3/uL (130-400); WHITE BLOOD COUNT 11.9 10^3/uL (4.3-11.0)
[2023-07-03 05:44] LABS: ALBUMIN 3.3 GM/DL (3.2-4.5); CALCIUM 8.9 MG/DL (8.5-10.1); CREATININE SERUM 0.83 MG/DL (0.60-1.30); POTASSIUM 3.9 MMOL/L (3.6-5.0); TOTAL PROTEIN 6.4 GM/DL (6.4-8.2)
[2023-07-03 06:16] LABS: LYMPHOCYTES % (MANUAL) 8 %; MONOCYTES % (MANUAL) 7 %; NEUTROPHILS % (MANUAL) 85 %
[2023-07-03 06:17] LABS: RBC MORPH NORMAL
[2023-07-03 07:38] VITALS: BP 145/65
[2023-07-03] MEDS: oxyCODONE IMMEDIATE RELEASE 5 MG TABLET PO PRN (08:20)
[2023-07-03] MEDS: ASPIRIN enteric coated 81MG TABLET PO SCH (08:20)
[2023-07-03] MEDS: DOCUSATE SODIUM 100 MG CAPSULE PO SCH (08:21)
[2023-07-03] MEDS: CELECOXIB 100 MG CAPSULE PO SCH (08:21)
[2023-07-03] MEDS ORDERED: OXC5T PO (08:30)
[2023-07-03] MEDS ORDERED: ASPI-1238 PO (08:30)
--- NOTE | 2023-07-03 08:34 | Discharge Summary ---
Discharge Summary Hospital Course Hospital Course Date of Admission: 07/01/23 Admission Diagnosis : Left Knee Primary Osteoarthritis Family Physician/Provider: Date of Discharge: 07/03/23 Discharge Diagnosis: [Left Knee Primary Osteoarthritis s/p TKA ] Hospital Course: [ On 07/01/23, patient underwent left total knee arthroplasty. Tolerated the procedure well and was transferred to the regular floor. On the day of surgery, began mechanical DVT prophylaxis and started to work with therapy. On POD #1, made good progress with therapy and began chemical DVT prophylaxis. On POD #2, continued to make progress with therapy and home health therapy arrangements were made. Patient was ready for discharge home.] Labs and Pending Lab Test: Laboratory Tests 07/03/23 05:00: White Blood Count 11.9H, Red Blood Count 4.24, Hemoglobin 11.8, Hematocrit 37, Mean Corpuscular Volume 87, Mean Corpuscular Hemoglobin 28, Mean Corpuscular Hemoglobin Concent 32, Red Cell Distribution Width 13.4, Platelet Count 272, Mean Platelet Volume 9.4, Immature Granulocyte % (Auto) 1, Neutrophils (%) (Auto) 83H, Lymphocytes (%) (Auto) 7L, Monocytes (%) (Auto) 8, Eosinophils (%) (Auto) 1, Basophils (%) (Auto) 0, Neutrophils # (Auto) 9.9H, Lymphocytes # (Auto) 0.8L, Monocytes # (Auto) 0.9, Eosinophils # (Auto) 0.1, Basophils # (Auto) 0.1, Immature Granulocyte # (Auto) 0.1, Neutrophils % (Manual) 85, Lymphocytes % (Manual) 8, Monocytes % (Manual) 7, Blood Morphology Comment NORMAL, Sodium Level 137, Potassium Level 3.9, Chloride Level 106, Carbon Dioxide Level 22, Anion Gap 9, Blood Urea Nitrogen 14, Creatinine 0.83, Estimat Glomerular Filtration Rate 74, BUN/Creatinine Ratio 17, Glucose Level 141H, Calcium Level 8.9, Corrected Calcium 9.5, Total Bilirubin 1.0, Aspartate Amino Transf (AST/SGOT) 18, Alanine Aminotransferase (ALT/SGPT) 20, Alkaline Phosphatase 86, Total Protein 6.4, Albumin 3.3 Home Meds Active Oxyir Tablet (Oxycodone HCl) 5 Mg Tab 5 Mg PO Q4H PRN 7 Days Assessment/Pt Instructions WBAT on left leg; use walker for assist. Dry dressing daily to incision site; do not get incision wet. Outpatient therapy for motion/strengthening/gait training. F/U with Dr. Ronald Whipple ~2 weeks after surgery. Discharge Physical Examination Vital Signs Vital Signs Date Time Temp Pulse Resp B/P (MAP) Pulse Ox O2 Delivery O2 Flow Rate FiO2 07/03/23 07:38 37.0 99 16 145/65 (91) 96 Room Air 07/03/23 03:10 2.00 Extremity: Other (Left Knee: Dressing C/D/I, +DF of ankle, no s/s of DVT) Allergies: Coded Allergies: No Known Drug Allergies (Unverified , 06/18/23) Discharge Summary Date of Admission Date of Discharge RONALD WHIPPLE MD Jul 03, 2023 08:34
--- NOTE | 2023-07-03 08:34 | Physical Therapy Daily Note ---
PT Daily Note-Current Subjective Patient sitting in chair upon PT arrival, son in the room, agreeable to treatment. Patient rates pain at 9/10 currently. Pain Section J - Health Conditions 1. Rarely or not at all 2. Occasionally 3. Frequently 4. Almost constantly 8. Unable to answer Pain Effect on Sleep: 3 Pain Interference with Therapy: 3 Pain Interference w/Day-to-Day: 3 Transfers SCALE: Activities may be completed with or without assistive devices. 3-Oovwnspqtg-qdnacpc completes the activity by him/herself with no assistance from a helper. 5-Set-up or Clean-up Assistance-helper sets up or cleans up; patient completes activity. [place] assists only prior to or following the activity. 4-Supervision or Touching Assistance-helper provides verbal cues and/or touching/steadying and/or contact guard assistance as patient completes activity. Assistance may be provided throughout the activity or intermittently. 3-Partial/Moderate Assistance-helper does LESS THAN HALF the effort. [place] lifts, holds or supports trunk or limbs, but provides less than half the effort. 2-Substantial/Maximal Assistance-helper does MORE THAN HALF the effort. [place] lifts or holds trunk or limbs and provides more than half the effort. 3-Uauuzamxg-evixrq does ALL the effort. Patient does none of the effort to complete the activity. Or, the assistance of 2 or more helpers is required for the patient to complete the activity. If activity was not attempted, code reason: 7-Patient Refused. 9-Not Applicable-not attempted and the patient did not perform the activity before the current illness, exacerbation or injury. 10-Not Attempted due to Environmental Limitations-(lack of equipment, weather restraints, etc.). 88-Not Attempted due to Medical Conditions or Safety Concerns. Sit to Stand (QC): 4 Chair/Zlr-hk-Whdpr Xfer(QC): 4 Weight Bearing Right Lower Extremity: Right Full Weight Bearing Left Lower Extremity: Left Weight Bearing/Tolerated Gait Training Does the Patient Walk?: Yes Distance: 100' Walk 10 feet (QC): 4 Walk 50 ft with 2 Turns(QC): 4 Gait Assistive Device: FWW Assessment Current Status: Fair Progress Patient tolerated treatment fair. She performs all observed transfers with CGA. Patient ambulates 100 feet with FWW, with CGA and verbal cues for safety, posture, and control of FWW. Patient ambulates with significant gait deficit keeping left knee flexed throughout, with LE in front of her and at times too far in front of the FWW. Patient in chair post treatment with all needs met, nursing notified, call light in hand, son in the room. PT Child Care Lead Teacher Goals Child Care Lead Teacher Goals PT Long-Term Goals Time Frame: Jul 13, 2023 Roll Left & Right (QC): 6 Sit to Lying (QC): 6 Lying-Sitting on Side/Bed(QC): 6 Sit to Stand (QC): 6 Chair/Hrj-li-Oxgex Xfer(QC): 6 Toilet Transfer (QC): 6 Walk 10 feet (QC): 5 Walk 50ft with 2 Turns (QC): 5 Walk 150 ft (QC): 5 PT Plan Treatment/Plan Treatment Plan: Continue Plan of Care Treatment Plan: Bed Mobility, Education, Functional Activity Onur, Functional Strength, Gait, Safety, Therapeutic Exercise, Transfers Treatment Duration: Jul 13, 2023 Frequency: 11 times per week Estimated Hrs Per Day: .5 hour per day Patient and/or Family Agrees t: Yes Safety Risks/Education Patient Education: Gait Training, Transfer Techniques Teaching Recipient: Patient, Family Teaching Methods: Demonstration, Discussion Response to Teaching: Reinforcement Needed Time Time In: 820 Time Out: 830 DATE: Jul 03, 2023 Total Billed Treatment Time: 10 Total Billed Treatment Visit, LARISA ENRIQUE PT Jul 03, 2023 08:34
--- NOTE | 2023-07-03 10:35 | Occupational Ther Daily Note ---
OT Current Status-Daily Note Subjective Agreeable to OT and full body dressing ADLS Pain Numeric Pain Scale: 6 Location Body Site: Knee Mental Status/Objective Patient Orientation: Person, Place, Time, Situation ADL-Treatment Son laid out bag of personal belongings for patient to sponge bathe and get dressed, OT placed armchair near lavatory for energy conservation and resting while perform UB/LB sponge and dressing tasks, OT demonstrated LB dressing sequence Therapy Code Descriptions/Definitions Functional [place] Measure: 0=Not Assessed/NA 4=Minimal Assistance 1=Total Assistance 5=Supervision or Setup 2=Maximal Assistance 6=Modified [place] 3=Moderate Assistance 7=Complete IndependenceSCALE: Activities may be completed with or without assistive devices. 1-Zgvuylwwbs-xsbxxvb completes the activity by him/herself with no assistance from a helper. 5-Set-up or Clean-up Assistance-helper sets up or cleans up; patient completes activity. [place] assists only prior to or following the activity. 4-Supervision or Touching Assistance-helper provides verbal cues and/or touching/steadying and/or contact guard assistance as patient completes activity. Assistance may be provided throughout the activity or intermittently. 3-Partial/Moderate Assistance-helper does LESS THAN HALF the effort. [place] lifts, holds or supports trunk or limbs, but provides less than half the effort. 2-Substantial/Maximal Assistance-helper does MORE THAN HALF the effort. [place] lifts or holds trunk or limbs and provides more than half the effort. 4-Atboygteb-txrsgx does ALL the effort. Patient does none of the effort to complete the activity. Or, the assistance of 2 or more helpers is required for the patient to complete the activity. If activity was not attempted, code reason: 7-Patient Refused. 9-Not Applicable-not attempted and the patient did not perform the activity before the current illness, exacerbation or injury. 10-Not Attempted due to Environmental Limitations-(lack of equipment, weather restraints, etc.). 88-Not Attempted due to Medical Conditions or Safety Concerns. Eating (QC): 5 (+nausea) Oral Hygiene (QC): 5 Bathing Location: L Arm, R Arm, L Upper Leg, R Upper Leg, Chest, Abdomen, Buttocks, Perineal Area Shower/Bathe Self (QC): 4 Upper Body Dressing (QC): 5 Lower Body Dressing (QC): 4 On/Off Footwear: 5 (extra time) Toileting Hygiene (QC): 5 Toilet Transfer (QC): 5 Education OT Patient Education: Energy conservation, Instructions to caregiver, Modified ADL techniques, Progress toward Goal/Update tx plan, Purpose of tx/functional activities, Reviewed precautions, Rehab process, Safety issues, Transfer techniques, Use of adapted equipment Teaching Recipient: Patient, Family Teaching Methods: Demonstration, Discussion Response to Teaching: Verbalize Understanding, Return Demonstration OT Intermediate Goals Stave Machine Tender Goals Eating (QC): 6 Oral Hygiene (QC): 6 Toileting Hygiene (QC): 6 Shower/Bathe Self (QC): 4 Upper Body Dressing (QC): 6 Lower Body Dressing (QC): 6 On/Off Footwear (QC): 6 1=Demonstrate adherence to instructed precautions during ADL tasks. 2=Patient will verbalize/demonstrate understanding of assistive devices/modifications for ADL. 3=Patient will improve strength/tolerance for activity to enable patient to perform ADL's. OT Education/Plan Problem List/Assessment Assessment: Decreased Activ Tolerance, Impaired Funct Balance, Impaired Self- Care Skills Discharge Recommendations Plan/Recommendations: Discontinue OT Therapy Discharge Recommendati: Home & Family Treatment Plan/Plan of Care Patient would benefit from OT for education, treatment and training to promote independence in ADL's, mobility, safety and/or upper extremity function for ADL's. Plan of Care: ADL Retraining, Functional Mobility, Group Exercise/Act as Ind, UE Funct Exercise/Act Treatment Duration: Jul 05, 2023 Frequency: 3 times per week (3-5 times per week) Estimated Hrs Per Day: .25 hour per day Agreement: Yes Rehab Potential: Fair Time Start Time: 08:26 Stop Time: 08:50 DATE: Jul 03, 2023 Total Time Billed (hr/min): 24 Billed Treatment Time ADL 24 min RENETTA VANEGAS OT Jul 03, 2023 10:34
[2023-07-03 11:07] VITALS: BP 119/57
--- NOTE | 2023-07-03 11:17 | D/C HH Face to Face Order ---
D/C Face to Face Orders Instructions for Patient Via [facility], Patient Instructions/FollowUp: WBAT on left leg; use walker for assist. Dry dressing daily to incision site; do not get incision wet. Home health therapy for motion/strengthening/gait training. F/U with Dr. Ronald Whipple ~2 weeks after surgery. Physician to follow Patient: Ronald Whipple Discharge Diet for Home: No Restrictions Patient Data-Allergies,Ht & Wt Patient Allergies: Coded Allergies: No Known Drug Allergies (Unverified , 06/18/23) Home Health Need/Face to Face Date of Face to Face: Jul 03, 2023 Clinical Findings: Muscle weakness, Pain with ambulation I have seen Pt [id number]: Yes Discharged To: Home Diagnosis/Conditions: Left Knee OA s/p TKA Patient is Homebound due to: Muscle weakness, Pain w/ambulation Homebound Status Due to the above stated illness, injury or surgical procedure (medical condition or diagnosis) and associated clinical findings, the patient is homebound because of his/her inability to leave home except with aid of a supportive device and/or person AND leaving the home requires a considerable and taxing effort or is medically contraindicated. Pt req the following assistanc: Walker Home Health Nursing Orders Home Health Services Order: Physical Therapy-Evaluate & Treat Home Health Infusion Therapy Line Start Date: Jul 01, 2023 Therapy Orders Therapy Specific Orders: Gait training, Increase strength/endurance, Restore ROM Certify Stmt I certify that this patient is under my care and that I, a nurse practitioner or a physician; a housing assistant working with me, had a face to face encounter that - meets the physician face to face encounter requirements with this patient as dated. RONALD WHIPPLE MD Jul 03, 2023 11:17
[2023-07-03 12:39] VITALS: BP 119/57
== END 2023-07-03 12:41 | disposition home health service (06) ==
LOC: SDC 07:23 → EDSTATUS 09:30 → 4TH 14:22 → SDC 07-03 12:41
PROVIDERS: ATTEND Orthopaedic Surgery
DX: M17.0 Bilateral primary osteoarthritis of knee (principal); R03.0 Elevated blood-pressure reading, without diagnosis of hypertension; R52 Pain, unspecified; E87.6 Hypokalemia; R11.0 Nausea
CPT/HCPCS: 27447; 73560; 80053 ×2; 85007; 85025; 85027; 97110; 97116 ×2; 97162; 97166; 97535 ×2; C1713 ×2; C1776 ×3; 36415